=== PATIENT | male | born 1950 | race Caucasian/White ===

== ENCOUNTER → 2020-08-27 | Outpatient (CLI) | payer OTHER, SELFPAY | LOC: NM 13:54 | DX: I50.22 Chronic systolic (congestive) heart failure (principal) | CPT/HCPCS: 78472; A9560; J1642 ==

== ENCOUNTER 2021-03-16 10:33 | Inpatient (IN) | payer OTHER ==
[~2021-03-16] VITALS: Ht 172.7 cm; Wt 47.2 kg
[2021-03-16 11:32] LABS: HEMOGLOBIN 16.1 gm/dl (14.0-17.5); RED BLOOD COUNT 5.25 M/UL (4.20-5.50); WHITE BLOOD COUNT 6.2 K/UL (4.5-11.0)
[2021-03-16 11:52] LABS: BUN/CREATININE RATIO 17 (0-10)
[2021-03-17] MEDS ORDERED: METOPROLOL SUCC25 MG PO (01:18)
[2021-03-17] MEDS ORDERED: CYANOCOBAL1000 MCG/1 INJ (01:23)
[2021-03-17] MEDS ORDERED: ATORVASTATIN CA40 MG PO (01:24)
[2021-03-17] MEDS ORDERED: LEVOTHYROXINE50 MCG PO (01:26)
[2021-03-17] MEDS ORDERED: PROTONIX 40 MG40 M1 PO (01:27)
[2021-03-17] MEDS ORDERED: ADULT LOW DOSE81 MG PO (01:29)
[2021-03-17] MEDS ORDERED: CO Q-10200 MG PO (01:30)
[2021-03-17 07:02] LABS: HEMOGLOBIN 15.2 gm/dl (14.0-17.5); RED BLOOD COUNT 5.04 M/UL (4.20-5.50)
[2021-03-17 07:12] LABS: WHITE BLOOD COUNT 4.6 K/UL (4.5-11.0)
[2021-03-17 07:25] LABS: BUN/CREATININE RATIO 21 (0-10)
[2021-03-17] MEDS ORDERED: VITAMIN D325 MCG PO (14:09)
[2021-03-19] MEDS ORDERED: IPRAT-ALBUT 0.5-3 ML NEB (15:53)
[2021-03-19] MEDS ORDERED: PROAIR HFA8.5 GM INH (15:53)
== END 2021-03-20 11:44 | disposition home or self-care (01) | DRG 177 ==
LOC: ER1 10:33 → CDU 13:53 → M/S 13:53
PROVIDERS: Physician Assistant; ADMIT Internal Medicine Infectious Disease
PROC: XW033E5 Introduction of Remdesivir Anti-infective into Peripheral Vein, Percutaneous Approach, New Technology Group 5 (ICD-10-PCS; principal; 2021-03-16)
PROC: 8E0ZXY6 Isolation (ICD-10-PCS; 2021-03-16)
DX: U07.1 COVID-19 (principal); J96.21 Acute and chronic respiratory failure with hypoxia; E44.1 Mild protein-calorie malnutrition; Z68.1 Body mass index [BMI] 19.9 or less, adult; I25.10 Atherosclerotic heart disease of native coronary artery without angina pectoris; J43.9 Emphysema, unspecified; R04.0 Epistaxis; Z95.1 Presence of aortocoronary bypass graft; Z79.82 Long term (current) use of aspirin; Z87.891 Personal history of nicotine dependence; Z83.6 Family history of other diseases of the respiratory system; Z95.0 Presence of cardiac pacemaker; Z90.49 Acquired absence of other specified parts of digestive tract
CPT/HCPCS: 36600; 71045; 80053; 82550; 82553; 82728; 82803; 83615; 83735; 83874; 84484; 85025; 85379; 86140; 93005; 94760; 96374; 99284; J0696; J1650; J2405; J7030; U0002

== ENCOUNTER → 2021-04-15 | Outpatient (CLI) | payer OTHER ==
[~2021-04-15] MED LIST: ADULT LOW DOSE81 MG PO; ATORVASTATIN CA40 MG PO; CO Q-10200 MG PO; CYANOCOBAL1000 MCG/1 INJ; IPRAT-ALBUT 0.5-3 ML NEB; LEVOTHYROXINE50 MCG PO; METOPROLOL SUCC25 MG PO; PROAIR HFA8.5 GM INH; PROTONIX 40 MG40 M1 PO; VITAMIN D325 MCG PO
== END ==
LOC: HEART 5 15:29
DX: I50.22 Chronic systolic (congestive) heart failure (principal); R06.02 Shortness of breath; Z98.890 Other specified postprocedural states; I08.1 Rheumatic disorders of both mitral and tricuspid valves; I27.20 Pulmonary hypertension, unspecified; Z95.0 Presence of cardiac pacemaker
CPT/HCPCS: 93306

== ENCOUNTER → 2021-09-01 | Outpatient (CLI) | payer OTHER ==
[~2021-09-01] MED LIST changes: +BEET ROOT PO; +CLINDAMYCIN HC300 MG PO; +HYDROCODON-ACE1 EAC4 PO; +LEVOFLOXACIN500 MG PO; +STIOLTO RESPIMAT4 GM INH; +ZINC50 M3 PO
[2021-09-01 11:29] LABS: HEMOGLOBIN 16.7 gm/dl (14.0-17.5); RED BLOOD COUNT 5.18 M/UL (4.20-5.50)
[2021-09-01 11:48] LABS: BUN/CREATININE RATIO 21 (0-10)
== END ==
LOC: LAB 10:57
PROVIDERS: Internal Medicine Cardiovascular Disease
DX: Z45.02 Encounter for adjustment and management of automatic implantable cardiac defibrillator (principal); I50.22 Chronic systolic (congestive) heart failure; I25.5 Ischemic cardiomyopathy
CPT/HCPCS: 36415; 71046; 80048; 85025

== ENCOUNTER → 2021-09-03 | Outpatient (CLI) | payer OTHER | LOC: CATH 11:07 | DX: Z45.02 Encounter for adjustment and management of automatic implantable cardiac defibrillator (principal); I25.5 Ischemic cardiomyopathy; I11.0 Hypertensive heart disease with heart failure; I50.22 Chronic systolic (congestive) heart failure; I25.10 Atherosclerotic heart disease of native coronary artery without angina pectoris; I49.5 Sick sinus syndrome; J44.9 Chronic obstructive pulmonary disease, unspecified; E03.9 Hypothyroidism, unspecified; Z87.891 Personal history of nicotine dependence; Z95.1 Presence of aortocoronary bypass graft; Z86.16 Personal history of COVID-19; Z88.8 Allergy status to other drugs, medicaments and biological substances; Z79.82 Long term (current) use of aspirin; Z79.899 Other long term (current) drug therapy; Z20.822 Contact with and (suspected) exposure to COVID-19 | CPT/HCPCS: 33240; 93641; 99152; 99153; C1721; J1200; J2250; J3010; J3370; J7040; J7050 ==